=== PATIENT | male | born 1980 | race African-American/Black ===

== ENCOUNTER 2021-08-20 04:19 | Day surgery (SDC) | payer OTHER ==
[2021-08-15 15:48] VITALS: BMI 27.3
[2021-08-20] MEDS ORDERED: MIDAZOLAM HCL 2 MG/2 ML SINGLE DOSE VIAL ONE (14:27)
[2021-08-20] MEDS ORDERED: ACETAMINOPHEN 325 MG TABLET (FP) PO PRN (14:27)
[2021-08-20] MEDS ORDERED: ONDANSETRON 4 MG/2 ML VIAL IVPUSH PRN (14:27)
[2021-08-20] MEDS ORDERED: oxyCODONE HCL 5 MG TABLET PO PRN (14:27)
[2021-08-20] MEDS ORDERED: LACTATED RINGERS SOLUTION 1,000 ML IV SCH (14:30)
[2021-08-20 15:25] VITALS: BP 126/85; PULSE 71; TEMP 97.2
== END 2021-08-20 16:00 | disposition home or self-care (01) ==
LOC: JASU-SURG 04:19
PROVIDERS: ATTEND Urology
PROC: 0TF3XZZ Fragmentation in Right Kidney Pelvis, External Approach (ICD-10-PCS; principal; 2021-08-20 14:30)
DX: N20.0 Calculus of kidney (principal)